=== PATIENT | female | born 1960 | race African-American/Black ===

== ENCOUNTER 2020-09-10 05:57 | Emergency (ER) | payer BC, MEDICAID, OTHER ==
[~2020-09-10] VITALS: Ht 162.6 cm; Wt 67.0 kg
[2020-09-10 06:02] VITALS: BP 136/94
--- NOTE | 2020-09-10 06:14 | NUR ---
assessment made. ERP at bedside.
[2020-09-10] MEDS ORDERED: DIAZEPAM 5 MG TABLET ONE (06:17)
[2020-09-10] MEDS ORDERED: HYDROcodone/APAP 5/325 TABLET ONE (06:17)
--- NOTE | 2020-09-10 06:22 | NUR ---
medicated for pain. patient to X ray.
[2020-09-10] MEDS ORDERED: DIAZEPAM 5 MG TABLET PO ONE (06:30)
[2020-09-10] MEDS ORDERED: HYDROcodone/APAP 5/325 TABLET PO ONE (06:30)
--- NOTE | 2020-09-10 06:51 | NUR ---
back from X ray. awaiting result. report to JING Conroy.
--- NOTE | 2020-09-10 06:53 | NUR ---
Jose christianson in ED - 09/10/20 at 0653 by DESMOND PT UP TO GO TO THE BATHROOM. STEADY GAIT.
--- NOTE | 2020-09-10 07:06 | NUR ---
PT RESTING IN BED. PLACED ROLLED SHEET UNDER PT'S NECK TO ASSIST WITH SUPPORT AND PAIN. PT STATES IMPROVMENT IN PAIN FROM POSITIONING. AWAITING FURTHER ORDERS FOR PT.
--- NOTE | 2020-09-10 07:56 | NUR ---
PT REC'VD DISCHARGE INSTRUCTIONS AND EDUCATION. PT STATED SHE HD NO FURTHER QUESTIONS.
--- NOTE | 2020-09-10 07:58 | NUR ---
PT AMBULATED TO MO DESK, STEADY GAIT
== END 2020-09-10 08:01 | disposition home or self-care (01) ==
LOC: ED 06:30
DX: G24.3 Spasmodic torticollis (principal); I10 Essential (primary) hypertension; F17.290 Nicotine dependence, other tobacco product, uncomplicated
CPT/HCPCS: 72050; 99283